=== PATIENT | female | born 1940 | race Caucasian/White ===

== ENCOUNTER 2019-04-05 09:16 | Inpatient (IN) ==
[2019-04-05] MEDS ORDERED: SODIUM CHLORIDE 0.9% 1,000 ML IV STA (09:35)
[2019-04-05] MEDS ORDERED: ONDANSETRON 4 MG/2 ML VIAL IV STA (09:35)
[2019-04-05] MEDS ORDERED: HYDROmorphone 2 MG/1 ML VIAL IV STA (09:35)
[2019-04-05 10:31] LABS: Basophils % 0.2 % (0.0-0.8); Eosinophils % 0.1 % (0.00-10.9); Hematocrit 35.7 VOL% (35.7-47.0); Hemoglobin 10.9 GM/DL (12.0-16.0); Immature Granulocytes % 0.4 %; Immature Granulocytes Absolute 0.04 #; Lymphocytes # 0.7 10*3/uL (1.4-4.0); Lymphocytes % 7.3 % (21.3-54.2); Mean Corpuscular HGB Conc 30.5 GM/DL (32-36); Mean Corpuscular Volume 89.3 FL (87-102); Mean Platelet Volume 12.4 FL (9.6-12.0); Monocytes % 4.2 % (1.7-12.7); Neutrophils % 87.8 % (38.7-73.9); Platelet Count 127 T/CUMM (130-400); Red Cell Distribution Width 14.1 % (9.3-17.3); White Blood Count 10.2 T/CUMM (4-12)
[2019-04-05 10:51] LABS: Albumin 3.7 G/DL (3.4-5.0); Bilirubin,Total 0.4 MG/DL (0.2-1.0); Calcium 9.1 MG/DL (8.5-10.1); Total Protein 7.4 G/DL (6.4-8.3)
[2019-04-05 10:52] LABS: Apearance,Urine CLEAR (Clear); Bilirubin,Urine Negative (Negative); Blood, Urine Negative (Negative); Glucose,Urine (UA) Negative (Negative); Ketones,Urine Negative (Negative); Mucus,Urine Occasional /LPF (Occasional); Nitrite,Urine Negative (Negative); Protein,Urine Negative; RBC,Urine 1 /HPF (0-4); Squamous Epithelial Cell,Urine Occasional /HPF (0-10); Urine Color Yellow (Yellow); Urine Specific Gravity 1.017 (1.001-1.035); Urine Urobilinogen < 2.0 EU/DL (0.2-1.0); WBC,Urine <1 /HPF (0-6)
[2019-04-05] MEDS ORDERED: ONDANSETRON 4 MG/2 ML VIAL IV PRN (11:56)
[2019-04-05] MEDS: SODIUM CHLORIDE 0.9% 1,000 ML IV SCH (12:20)
[2019-04-05] MEDS: MORPHINE 4 MG/1 ML VIAL IV PRN ×2 (15:13→21:35)
[2019-04-05] MEDS: PROMETHAZINE 25 MG TABLET PO PRN ×2 (15:30→21:35)
[2019-04-05] MEDS ORDERED: ENOXAPARIN 40 MG/0.4 ML SYRINGE SUBCUT SCH (21:00)
[2019-04-06] MEDS: MORPHINE 4 MG/1 ML VIAL IV PRN ×3 (02:16→19:30)
[2019-04-06 05:31] LABS: Basophils % 0.2 % (0.0-0.8); Eosinophils % 0.4 % (0.00-10.9); Hematocrit 35.7 VOL% (35.7-47.0); Hemoglobin 10.6 GM/DL (12.0-16.0); Immature Granulocytes % 0.4 %; Immature Granulocytes Absolute 0.03 #; Lymphocytes # 1.2 10*3/uL (1.4-4.0); Lymphocytes % 15.2 % (21.3-54.2); Mean Corpuscular HGB Conc 29.7 GM/DL (32-36); Mean Corpuscular Volume 91.3 FL (87-102); Mean Platelet Volume 13.1 FL (9.6-12.0); Monocytes % 8.9 % (1.7-12.7); Neutrophils % 74.9 % (38.7-73.9); Platelet Count 124 T/CUMM (130-400); Red Blood Count 3.91 MC/CUMM (3.8-5.5); Red Cell Distribution Width 14.6 % (9.3-17.3)
[2019-04-06 05:38] LABS: PT Patient Result 10.5 SECS; Partial Thromboplastin Time 26.8 SECS (0-40)
[2019-04-06] MEDS ORDERED: FAMOTIDINE 20 MG TABLET PO ONE (06:00)
[2019-04-06] MEDS ORDERED: PREGABALIN 75 MG CAPSULE PO ONE (06:00)
[2019-04-06] MEDS ORDERED: DIAZEPAM 5 MG TABLET PO ONE (06:00)
[2019-04-06] MEDS ORDERED: VANCOMYCIN INJ 1,000 MG in SODIUM CHLORIDE 0.9% 250 ML IV ONE (06:00)
[2019-04-06 06:18] LABS: Albumin 3.4 G/DL (3.4-5.0); Bilirubin,Total 0.8 MG/DL (0.2-1.0); Osmolality,Calculated 286.8 MOS/KG (273-304); Risk Ratio 2.75; Thyroid Stimulating Hormone 1.05 uIU/ml (0.358-3.74); Total Protein 6.9 G/DL (6.4-8.3); VLDL CHOLESTEROL 26.4 MG/DL
[2019-04-06] MEDS ORDERED: ceFAZolin 1,000 MG in SYRINGE 1 EACH IV ONE (06:30)
[2019-04-06] MEDS ORDERED: PHENYLEPHRINE DRIP 0 MG/0 ML PREMIX IV ONE (06:39)
[2019-04-06] MEDS ORDERED: BUPIVACAINE SPINAL 0.75% 2 ML AMP SPINAL ONE (06:39)
[2019-04-06] MEDS ORDERED: PROPOFOL 0 MG/0 ML BOTTLE IV ONE (06:39)
[2019-04-06] MEDS ORDERED: TRANEXAMIC ACID 1,000 MG/10 ML VIAL ONE (08:09)
[2019-04-06] MEDS: VENLAFAXINE 75 MG TABLET PO SCH ×2 (09:00→21:09)
[2019-04-06] MEDS ORDERED: MAGNESIUM HYDROXIDE SUSP 30 ML UDCUP PO PRN (09:14)
[2019-04-06] MEDS ORDERED: ZALEPLON 5 MG CAPSULE PO PRN (09:14)
[2019-04-06] MEDS ORDERED: MORPHINE 4 MG/1 ML VIAL IV PRN (09:14)
[2019-04-06] MEDS ORDERED: diphenhydrAMINE CAP 25 MG CAPSULE PO PRN (09:14)
[2019-04-06] MEDS: LACTATED RINGERS 1,000 ML IV SCH ×3 (09:57→19:33)
[2019-04-06] MEDS ORDERED: ETOMIDATE 40 MG/20 ML VIAL IV ONE (11:30)
[2019-04-06] MEDS ORDERED: DESFLURANE 1 UNIT/15 MINUTE INH ONE (11:30)
[2019-04-06] MEDS ORDERED: fentaNYL 100 MCG/2 ML VIAL ONE (11:30)
[2019-04-06] MEDS ORDERED: ROCURONIUM 100 MG/10 ML VIAL IV ONE (11:31)
[2019-04-06] MEDS ORDERED: NEOSTIGMINE 10 MG/10 ML VIAL ONE (11:31)
[2019-04-06] MEDS ORDERED: PHENYLEPHRINE 1 MG/10 ML SYRINGE IV ONE (11:31)
[2019-04-06] MEDS ORDERED: GLYCOPYRROLATE 0.4 MG/2 ML VIAL ONE (11:31)
[2019-04-06] MEDS: ceFAZolin 1,000 MG in SYRINGE 1 EACH IV SCH ×2 (13:59→21:16)
[2019-04-06] MEDS ORDERED: amLODIPine 10 MG TABLET PO SCH (21:00)
[2019-04-06] MEDS: DOCUSATE SODIUM 100 MG CAPSULE PO SCH (21:09)
[2019-04-06] MEDS: ASCORBIC ACID 500 MG TABLET PO SCH (21:09)
[2019-04-06] MEDS: CALCIUM (CARBONATE) 600 MG TABLET PO SCH (21:10)
[2019-04-06] MEDS: SIMVASTATIN 10 MG TABLET PO SCH (21:10)
[2019-04-06] MEDS: SODIUM CHLORIDE 0.9% 1,000 ML IV SCH (22:54)
[2019-04-07] MEDS: MORPHINE 4 MG/1 ML VIAL IV PRN ×2 (00:12→06:08)
[2019-04-07] MEDS: LACTATED RINGERS 1,000 ML IV SCH (03:01)
[2019-04-07] MEDS: FONDAPARINUX 2.5 MG/0.5 ML SYRINGE SUBCUT SCH (04:04)
[2019-04-07 05:34] LABS: Basophils % 0.1 % (0.0-0.8); Hematocrit 32.5 VOL% (35.7-47.0); Hemoglobin 9.8 GM/DL (12.0-16.0); Immature Granulocytes % 0.4 %; Immature Granulocytes Absolute 0.04 #; Lymphocytes # 0.8 10*3/uL (1.4-4.0); Lymphocytes % 8.5 % (21.3-54.2); Mean Corpuscular HGB Conc 30.2 GM/DL (32-36); Mean Corpuscular Volume 90.3 FL (87-102); Mean Platelet Volume 12.4 FL (9.6-12.0); Monocytes % 8.1 % (1.7-12.7); Neutrophils % 82.9 % (38.7-73.9); Platelet Count 100 T/CUMM (130-400); White Blood Count 9.6 T/CUMM (4-12)
[2019-04-07 06:00] LABS: Calcium 9.2 MG/DL (8.5-10.1); Osmolality,Calculated 277.5 MOS/KG (273-304)
[2019-04-07] MEDS ORDERED: MAGNESIUM SULF RIDER 2 GM in PREMIX 1 EACH IV ONE (07:46)
[2019-04-07] MEDS ORDERED: ACETAMINOPHEN 325 MG TABLET PO PRN (09:11)
[2019-04-07] MEDS: DOCUSATE SODIUM 100 MG CAPSULE PO SCH ×2 (09:50→20:31)
[2019-04-07] MEDS: VENLAFAXINE 75 MG TABLET PO SCH ×2 (09:50→20:31)
[2019-04-07] MEDS ORDERED: SODIUM CHLORIDE 0.45% 500 ML IV ONE (12:20)
[2019-04-07] MEDS: cefTRIAXone 1,000 MG in SYRINGE 1 EACH IV SCH (13:26)
[2019-04-07] MEDS: SIMVASTATIN 10 MG TABLET PO SCH (20:31)
[2019-04-07] MEDS: CALCIUM (CARBONATE) 600 MG TABLET PO SCH (20:32)
[2019-04-07] MEDS: ASCORBIC ACID 500 MG TABLET PO SCH (20:32)
[2019-04-07] MEDS: amLODIPine 5 MG TABLET PO SCH (20:32)
[2019-04-08] MEDS: FONDAPARINUX 2.5 MG/0.5 ML SYRINGE SUBCUT SCH (03:24)
[2019-04-08 06:00] LABS: Basophils % 0.1 % (0.0-0.8); Eosinophils # 0.1 10*3/uL (0.0-0.87); Eosinophils % 0.9 % (0.00-10.9); Hematocrit 29.9 VOL% (35.7-47.0); Hemoglobin 9.1 GM/DL (12.0-16.0); Immature Granulocytes % 0.6 %; Immature Granulocytes Absolute 0.05 #; Lymphocytes # 0.9 10*3/uL (1.4-4.0); Lymphocytes % 10.9 % (21.3-54.2); Mean Corpuscular HGB Conc 30.4 GM/DL (32-36); Mean Corpuscular Volume 90.3 FL (87-102); Mean Platelet Volume 12.8 FL (9.6-12.0); Monocytes % 8.7 % (1.7-12.7); Neutrophils % 78.8 % (38.7-73.9); Platelet Count 96 T/CUMM (130-400); Red Blood Count 3.31 MC/CUMM (3.8-5.5); Red Cell Distribution Width 14.3 % (9.3-17.3); White Blood Count 8.5 T/CUMM (4-12)
[2019-04-08 06:22] LABS: Band Neutrophils 5 % (0-10); Eosinophils 1 % (0-10); Lymphocytes 9 % (20-55); Platelet Estimate Decreased; Segmented Neutrophils 79 % (50-85); Total Cells Counted 100
[2019-04-08 06:23] LABS: Anisocytosis Slight; Macrocytosis Slight
[2019-04-08] MEDS: amLODIPine 5 MG TABLET PO SCH (08:11)
[2019-04-08] MEDS: VENLAFAXINE 75 MG TABLET PO SCH (08:11)
[2019-04-08] MEDS: DOCUSATE SODIUM 100 MG CAPSULE PO SCH (08:11)
[2019-04-08 11:51] VITALS: BP 127/65
[2019-04-08] MEDS: cefTRIAXone 1,000 MG in SYRINGE 1 EACH IV SCH (12:48)
== END 2019-04-08 14:30 | DRG 470 ==
LOC: EDUNIT# → EDBD → N.ED 09:16 → SUATTDRO 11:56 → N.EDINP 11:56 → N.3E 14:05
PROVIDERS: ADMIT Internal Medicine; ATTEND Internal Medicine